=== PATIENT | female | born 1970 | race Caucasian/White ===

== ENCOUNTER 2017-01-13 19:49 | Emergency (ER) | payer SELFPAY ==
[~2017-01-13] VITALS: Ht 162.6 cm; Wt 70.0 kg
[2017-01-13 19:53] VITALS: Ht 162.6 cm; Wt 70.0 kg
[2017-01-13] MEDS ORDERED: ACETAMINOPHEN 500 MG TAB PO STA (21:26)
[2017-01-13] MEDS ORDERED: LIDOCAINE 1% (MDV) 20 ML INJ SC STA (21:26)
[2017-01-13] MEDS ORDERED: CEFTRIAXONE 1 GM INJ IM ONE (21:30)
[2017-01-13 22:47] LABS: ADD UMIC YES; UR ASCORBIC ACID NEGATIVE (NEGATIVE); UR BACTERIA FEW /HPF (NONE SEEN); UR BILIRUBIN (Dip) NEGATIVE (NEGATIVE); UR BLOOD (Dip) 3+ mg/dL (NEGATIVE); UR CLARITY SLIGHTLY CLOUDY (CLEAR); UR COLOR AMBER (YELLOW); UR GLUCOSE (Dip) NEGATIVE (NEGATIVE); UR KETONES (Dip) NEGATIVE (NEGATIVE); UR LEUKOCYTE ESTERASE (Dip) 1+ Leu/ul (NEGATIVE); UR NITRITE (Dip) POSITIVE (NEGATIVE); UR NONSQUAMOUS EPITHELIAL CELL 1 /HPF (NONE SEEN); UR RBC > 182 /HPF (0-5); UR SPECIFIC GRAVITY (Dip) 1.009 (1.003-1.030); UR SQUAMOUS EPITHELIAL CELL FEW /HPF (FEW); UR TOTAL PROTEIN (Dip) 1+ mg/dl (NEGATIVE); UR UROBILINOGEN (Dip) 2+ mg/dL (NEGATIVE); UR WBC CLUMPS FEW /HPF (NONE SEEN)
[2017-01-13] MEDS ORDERED: CEPH-443 PO (22:58)
[2017-01-13] MEDS ORDERED: NAPR-260 PO (23:00)
[2017-01-13 23:30] VITALS: BP 112/74; PULSE 99; RESP 18; TEMP 99.9
--- NOTE | 2017-01-14 00:11 | ERD ---
ER Documentation Chief Complaint Date/Time DATE: 01/14/17 TIME: 00:05 Chief Complaint pt bib family with c/o blood in her urine for a few days HPI This is a 46-year-old female presenting to the emergency department with Moderate to severepainful urination, hematuria for the past 3 days. Patient states 3 days prior to being seen she started feeling dysuria and was seen by a different physician who gave her Cipro. Patient states that she felt better for 1 day however the symptoms have returned and she started feeling febrile today. Patient admits to having flank pain. Denies any vomiting or nausea. States that she has been compliant with Cipro and taking Pyridium for pain relief ROS All systems reviewed and are negative except as per history of present illness. Medications Home Meds Active Scripts Naproxen* (Naprosyn*) 500 Mg Tablet, 500 MG PO BID Y for PAIN AND/OR INFLAMMATION, #30 TAB Prov:SUDHAKAR SAAVEDRA PA-C 01/13/17 Cephalexin* (Keflex*) 500 Mg Capsule, 500 MG PO QID for 10 Days, CAP Prov:SUDHAKAR SAAVEDRA PA-C 01/13/17 Allergies Allergies: Coded Allergies: No Known Allergy (Unverified , 01/13/17) PMhx/Soc History of Surgery: Yes (csection x2) Anesthesia Reaction: No Hx Alcohol Use: No Hx Substance Use: No Hx Tobacco Use: No Smoking Status: Never smoker Physical Exam Vitals Vital Signs Date Time Temp Pulse Resp B/P Pulse Ox O2 Delivery O2 Flow Rate FiO2 01/13/17 23:30 99.9 99 18 112/74 99 Room Air 01/13/17 19:53 100.7 99 18 124/74 98 Physical Exam General: well-developed/well-nourished, in no apparent distress, non-toxic appearing HENT: NC/AT Eyes: Conjunctiva normal Neck: Supple Pulm: CTA bilaterally, normal breathing CV: Normal S1S2 GI: Soft, non-distended, normal bowel sounds, TTP on suprapubic region Back: No midline tenderness, no masses, No CVAT Ext: No clubbing, cyanosis, or edema Neuro: Alert and orientated Skin: intact, normal turgor Psych: Normal mood and mentation Results 24 hrs Laboratory Tests Test 01/13/17 21:40 Urine Color MAGALI Urine Clarity SLIGHTLY CLOUDY Urine pH 5.0 Urine Specific [place] 1.009 Urine Ketones NEGATIVEmg/dL Urine Nitrite POSITIVEmg/dL Urine Bilirubin NEGATIVEmg/dL Urine Urobilinogen 2+mg/dL Urine Leukocyte Esterase 1+Rene/ul Urine Microscopic RBC > 182/HPF Urine Microscopic WBC > 182/HPF Urine Squamous Epithelial Cells FEW/HPF Urine Bacteria FEW/HPF Urine Hemoglobin 3+mg/dL Urine Glucose NEGATIVEmg/dL Urine Total Protein 1+mg/dl Current Medications Medications (Trade) Dose Ordered Sig/Rachid Route PRN Reason Start Time Stop Time Status Last Admin Dose Admin Acetaminophen (Tylenol Tab) 1,000 mg ONCE STAT PO 01/13/17 21:26 01/13/17 21:28 DC 01/13/17 21:49 Ceftriaxone Sodium (Rocephin) 1 gm ONCE ONCE IM 01/13/17 21:30 01/13/17 21:31 DC 01/13/17 21:49 Lidocaine (Xylocaine 1% (Mdv) 20 ml) 20 ml ONCE STAT SC 01/13/17 21:26 01/13/17 21:28 DC 01/13/17 21:50 Procedures/MDM This is a 46-year-old female without any relevant medical problem Presents to the emergency department with acute cystitis versus possible early pyelonephritis. 3 days prior to being seen patient was given Cipro for urinary tract infection, patient is compliant with the medication, patient likely has resistant to Cipro. Urinalysis showed evidence of infection and hemoglobin. Urine culture sent out. In the ED patient was given ceftriaxone and Tylenol. Prescription for Keflex was provided for next 10 days. Patient is febrile, she does not have any CVA tenderness, she appears nontoxic and well. Patient is hematuria stable to be discharged home with strict precautions to return emergency department for any worsening conditon She understands and agrees with plan Departure Diagnosis: Primary Impression: Cystitis Condition: Stable Patient Instructions: Cystitis Additional Instructions: FOLLOW UP WITH YOUR PRIMARY CARE PHYSICIAN TOMORROW.Return to this facility if you are not improving as expected. Take all medicines as directed. Return to this facility if you are not improving as expected. SUDHAKAR SAAVEDRA PA-C Jan 14, 2017 00:11
== END 2017-01-13 23:30 | disposition home or self-care (01) ==
LOC: FTE 19:49
DX: N30.90 Cystitis, unspecified without hematuria (principal)
CPT/HCPCS: 81001; 87086; 96372; 99284; J0696